=== PATIENT | male | born 1995 | race African-American/Black ===

== ENCOUNTER 2017-02-27 03:13 | Emergency (ER) | payer SELFPAY ==
[2017-02-27 03:47] VITALS: BP 138/74; PULSE 86; TEMP 97.2; BMI 25.0
--- NOTE | 2017-02-27 03:50 | PDOC ---
History of Present Illness - General History Source: Patient, Family Exam Limitations: No Limitations - History of Present Illness Initial Comments: 02/27/17 04:19 The patient is a 22 year old male with no significant PMH who presents to the emergency department with a finger injury that occurred approximately 29 hours ago. The patient reports dropping a plate and attempting to catch it, after which the plate shattered and the pieces cut the side of his right middle finger. The patient's family reports that the patient visited [facility] ED immediately after the finger injury occurred on . He denied treatment after the ED provider requested to inject local into the cut. The patient and his family came to the [facility] ED on Wednesday morning after the cut did not stop bleeding. The patient is right-hand dominant. The patient's tetanus immunization is up to date. The patient denies numbness or tingling. Denies chest pain, shortness of breath, headache and dizziness. Denies fever, chills, nausea, vomit, diarrhea and constipation. Denies dysuria, frequency, urgency and hematuria. Allergies: NKA Past surgical history: None Social history: No toxic habits reported <Thom Soler - Last Filed: 02/27/17 04:18> - General History Source: Patient Exam Limitations: No Limitations - History of Present Illness Occurred: reports: other (x29h ago) Upper Extremity Pain Location: right: 3rd finger (lat x29h ago) Method of Injury: reports: incised <Sagar Woodson - Last Filed: 02/27/17 04:24> - General Stated Complaint: FINGER, INJURY Time Seen by Provider: 02/27/17 03:37 Past History <Thom Soler - Last Filed: 02/27/17 04:18> <Sagar Woodson - Last Filed: 02/27/17 04:24> - Past Medical History Allergies/Adverse Reactions: Allergies Allergy/AdvReac Type Severity Reaction Status Date / Time No Known Allergies Allergy Verified 02/27/17 03:45 Home Medications: Ambulatory Orders Cephalexin Monohydrate [Keflex -] 500 mg PO TID #15 capsule 02/27/17 Review of Systems - Review of Systems Comments:: 02/27/17 04:19 CONSTITUTIONAL: Absent: Fevers, chills, diaphoresis, generalized weakness, malaise, loss of appetite HEENT: Absent: rhinorrhea, nasal congestion, throat pain, throat swelling, difficulty swallowing, mouth swelling, ear pain, eye pain, visual Changes CARDIOVASCULAR: Absent: chest pain, syncope, palpitations, irregular heart rate, lightheadedness , peripheral edema RESPIRATORY: Absent: cough, shortness of breath, dyspnea with exertion, orthopnea, wheezing, stridor, hemoptysis GASTROINTESTINAL: Absent: abdominal pain, abdominal distension, nausea, vomiting, diarrhea, constipation, melena, hematochezia GENITOURINARY: Absent: dysuria, frequency, urgency, hesitancy, hematuria, flank pain, genital pain MUSCULOSKELETAL: Absent: myalgia, arthralgia, joint swelling SKIN: (+)Right middle finger injury Absent: rash, itching, pallor HEMATOLOGIC/IMMUNOLOGIC: Absent: easy bleeding, easy bruising, lymphadenopathy, frequent infections NEUROLOGIC: Absent: headache, focal weakness or paresthesias, dizziness, unsteady gait, seizure, mental status changes, bladder or bowel incontinence PSYCHIATRIC: Absent: anxiety, depression, suicidal or homicidal ideation, hallucinations. <Thom Soler - Last Filed: 02/27/17 04:18> *Physical Exam - Vital Signs Last Vital Signs Temp Pulse Resp BP Pulse Ox 97.2 F L 86 20 138/74 99 02/27/17 03:46 02/27/17 03:46 02/27/17 03:46 02/27/17 03:46 02/27/17 03:46 - Physical Exam Comments: 02/27/17 04:19 GENERAL: Well developed, well nourished. Awake and alert. No acute distress. HEENT: Normocephalic, atraumatic. PERRLA, EOMI. No conjunctival pallor. Sclera are non- icteric. Moist mucous membranes. Oropharynx is clear. NECK: Supple. Full ROM. No JVD. Carotid pulses 2+ and symmetric, without bruits. No thyromegaly. No lymphadenopathy. CARDIOVASCULAR: Regular rate and rhythm. No murmurs, rubs, or gallops. Distal pulses are 2+ and symmetric. PULMONARY: No evidence of respiratory distress. Lungs clear to auscultation bilaterally. No wheezing, rales or rhonchi. ABDOMINAL: Soft. Non-tender. Non-distended. No rebound or guarding. No organomegaly. Normoactive bowel sounds. MUSCULOSKELETAL Normal range of motion at all joints. No bony deformities or tenderness. No CVA tenderness. EXTREMITIES: No cyanosis. No clubbing. No edema. No calf tenderness. SKIN: (+) 3 cm x 1 cm avulsion laceration on right medial 3rd mid to distal phalanx Warm and dry. Normal capillary refill. No rashes. No jaundice. NEUROLOGICAL: Alert, awake, appropriate. Cranial nerves 2-12 intact. No deficits to light touch and temperature in face, upper extremities and lower extremities. No motor deficits in the in face, upper extremities and lower extremities. Normoreflexic in the upper and lower extremities. Normal speech. Toes are downgoing bilaterally. Gait is normal without ataxia. PSYCHIATRIC: Cooperative. Good eye contact. Appropriate mood and affect. <Thom Soler - Last Filed: 02/27/17 04:18> *DC/Admit/Observation/Transfer - Attestations Scribe Attestion: 02/27/17 04:20 Documentation prepared by Thom Soler, acting as medical sales specialist for Diandra Fitzgerald MD. <Thom Soler - Last Filed: 02/27/17 04:18> - Discharge Dispostion Admit: No <Sagar Woodson - Last Filed: 02/27/17 04:24> Diagnosis at time of Disposition: Laceration - Discharge Dispostion Disposition: HOME Condition at time of disposition: Stable - Prescriptions Prescriptions: Cephalexin Monohydrate [Keflex -] 500 mg PO TID #15 capsule - Patient Instructions Printed Discharge Instructions: DI for Open Laceration Additional Instructions: As we discussed, you laceration/cut is over 24 hours and therefore cannot be repaired. Take Tylenol as needed for pain Take Keflex 500 mg 1 tablet 3 times a day for the next 5 days to prevent any infection but is not guaranteed Follow-up with your primary care physician in 24-48 hours for wound check or return to the emergency department for the wound check Return back to the emergency department for any red streaks coming from the cut , severe swelling, fever or chills. Follow-up with your physician as needed.
[2017-02-27] MEDS ORDERED: CEPHALEXIN MONOHYDRATE 500 MG CAPSULE (UD) PO ONE (04:18)
[2017-02-27] MEDS ORDERED: CEPHALEXIN MONOHYDRATE 250 MG CAPSULE (FP) ONE (04:20)
== END 2017-02-27 04:25 | disposition home or self-care (01) ==
LOC: JER 03:13
DX: S61.212A Laceration without foreign body of right middle finger without damage to nail, initial encounter (principal); W25.XXXA Contact with sharp glass, initial encounter; Y93.89 Activity, other specified; Y92.9 Unspecified place or not applicable
CPT/HCPCS: 99282-25

== ENCOUNTER 2019-09-04 15:43 | Emergency (ER) | payer BC, OTHER ==
--- NOTE | 2019-09-04 16:06 | PDOC ---
Rapid Medical Evaluation Time Seen by Provider: 09/04/19 16:01 Medical Evaluation: Allergies Allergy/AdvReac Type Severity Reaction Status Date / Time No Known Allergies Allergy Verified 02/27/17 03:45 09/04/19 16:01 I performed a brief in-person evaluation of this patient. Healthy 24-year-old male with right testicular mass since Apr. No discharge, erythema, pain, or other associated symptoms. Pertinent physical exam findings. Deferred I have ordered the following: UA/culture GC/CT Testicular u/s Patient to proceed to ED for further evaluation. 09/04/19 16:08
[2019-09-04 16:09] VITALS: TEMP 98; BMI 23.7
--- NOTE | 2019-09-04 17:12 | PDOC ---
History of Present Illness - General History Source: Patient - History of Present Illness Initial Comments: 09/04/19 17:42 Mr. Wills is a 24 y/o man w/no PMH p/w 4 months of unilateral R scrotal swelling. He reports not presenting for evaluation previously due to lack of insurance. He reports painless unilateral swelling at the R groin region, with some increase in size over the last 4 months. He denies any dysuria, increased urinary frequency, nausea, vomiting, fevers, chills, weight loss, or night sweats. He reports occasional unprotected anal sex. He reports two episodes of painless macular red rash on the glans that resolved in approx two weeks. He has not been previously tested for STIs and consents to HIV testing today. <Osiel Deluca - Last Filed: 09/10/19 03:35> <Mayo Alvarenga - Last Filed: 09/15/19 01:08> - General Chief Complaint: Penile Drainage Stated Complaint: RT SIDE LUMP ON THE TESTICLE Time Seen by Provider: 09/04/19 16:01 Past History - Past Medical History COPD: No - Immunization History Immunization Up to Date: No - Psycho Social/Smoking Cessation Hx Smoking History: Never smoked Have you smoked in the past 12 months: No Hx Alcohol Use: Yes Drug/Substance Use Hx: Yes (marijuana) Substance Use Type: None <Osiel Deluca - Last Filed: 09/10/19 03:35> <Mayo Alvarenga - Last Filed: 09/15/19 01:08> - Past Medical History Allergies/Adverse Reactions: Allergies Allergy/AdvReac Type Severity Reaction Status Date / Time No Known Allergies Allergy Verified 09/04/19 18:54 Home Medications: Ambulatory Orders Doxycycline Monohydrate [Mondoxyne Nl] 100 mg PO BID 21 Days #42 capsule Doxycycline Monohydrate [Mondoxyne Nl] 100 mg PO BID #14 capsule 09/13/19 Review of Systems - Review of Systems Able to Perform ROS?: Yes Comments:: 09/04/19 18:53 ROS: GENERAL/CONSTITUTIONAL: No fever or chills. No weakness. HEAD, EYES, EARS, NOSE AND THROAT: No change in vision. No ear pain or discharge. No sore throat. CARDIOVASCULAR: No chest pain or shortness of breath RESPIRATORY: No cough, wheezing, or hemoptysis. GASTROINTESTINAL: No nausea, vomiting, diarrhea or constipation. GENITOURINARY: Groin swelling. No dysuria, frequency, or change in urination. MUSCULOSKELETAL: No joint or muscle swelling or pain. No neck or back pain. SKIN: No rash NEUROLOGIC: No headache, vertigo, loss of consciousness, or change in strength/ sensation. ENDOCRINE: No increased thirst. No abnormal weight change HEMATOLOGIC/LYMPHATIC: No anemia, easy bleeding, or history of blood clots. ALLERGIC/IMMUNOLOGIC: No hives or skin allergy. <Osiel Deluca - Last Filed: 09/10/19 03:35> *Physical Exam - Vital Signs Last Vital Signs Temp Pulse Resp BP Pulse Ox 98.0 F 80 12 98/57 L 100 09/04/19 16:07 09/04/19 16:07 09/04/19 16:07 09/04/19 16:07 09/04/19 16:07 - Physical Exam 09/04/19 18:53 PE: GENERAL: Awake, alert, and fully oriented, in no acute distress HEAD: No signs of trauma, normocephalic, atraumatic EYES: PERRLA, EOMI, sclera anicteric, conjunctiva clear ENT: Auricles normal inspection, hearing grossly normal, nares patent, oropharynx clear without exudates. Moist mucosa NECK: Normal ROM, supple, no lymphadenopathy, JVD, or masses LUNGS: No distress, speaks full sentences, clear to auscultation bilaterally HEART: Regular rate and rhythm, normal S1 and S2, no murmurs, rubs or gallops, peripheral pulses normal and equal bilaterally. ABDOMEN: Soft, nontender, normoactive bowel sounds. No guarding, no rebound. No masses EXTREMITIES : Normal inspection, Normal range of motion, no edema. No clubbing or cyanosis NEUROLOGICAL: Cranial nerves II through XII grossly intact. Normal speech, normal gait, no focal sensorimotor deficits SKIN: Warm, Dry, normal turgor, no rashes or lesions noted <Osiel Deluca - Last Filed: 09/10/19 03:35> - Vital Signs Last Vital Signs Temp Pulse Resp BP Pulse Ox 98.0 F 79 16 120/74 99 09/04/19 16:07 09/04/19 20:25 09/04/19 20:25 09/04/19 20:25 09/04/19 20:25 <Mayo Alvarenga - Last Filed: 09/15/19 01:08> ED Treatment Course - ADDITIONAL ORDERS Additional order review: 09/04/19 16:30 Urine Culture - Final Urine - Urine Clean Catch NO GROWTH OBTAINED - Medications Given in the ED: ED Medications Discontinued Medications Generic Name Dose Route Start Last Admin Trade Name Emanuel PRN Reason Stop Dose Admin Azithromycin 1,000 mg 09/04/19 17:36 09/04/19 18:09 Zithromax PO 09/04/19 17:37 1,000 mg ONCE ONE Administration Ceftriaxone Sodium 250 mg 09/04/19 17:36 09/04/19 18:09 Rocephin - IM 09/04/19 17:37 250 mg ONCE ONE Administration <Mayo Alvarenga - Last Filed: 09/15/19 01:08> Medical Decision Making - Medical Decision Making 09/04/19 17:58 24M w/no PMH p/w 4 months of painless swelling at the R inguinal crease, firm 1cm diameter spherical nodule noted c/w buboes. Ddx includes LGV given multiple partners with intermittent protection with termite treater buboes. Swelling may also represent cystic structure vs mass. Plan: UA Urine culture GC Urine HIV oraquick test (verbal consent obtained) RPR Scrotal US to evaluate structure Azithromycin 1000 mg po 250mg IM ceftriaxone Dispo: Discharge with PCP, urology follow up --- Patient to USS. UA negative RPR will be send out test, plan for call-back with results 09/04/19 18:44 US - negative for acute process Plan for discharge with Doxy 100mg BID 21 days for LGV coverage given buboes, duration of symptoms <Osiel Deluca - Last Filed: 09/10/19 03:35> - Medical Decision Making 09/15/19 01:07 I have seen and evaluated the patient. I agree with the resident's note as well as management and care I have informed the patient that I believe his testicular swelling and ultrasound are related to STI however cancerous mass could not be ruled out by ultrasound and that he should urgently follow up with a urologist for further testing. <Mayo Alvarenga - Last Filed: 09/15/19 01:08> Discharge - Discharge Information Problems reviewed: Yes - Admission No <Osiel Deluca - Last Filed: 09/10/19 03:35> <Mayo Alvarenga - Last Filed: 09/15/19 01:08> - Discharge Information Clinical Impression/Diagnosis: Urinary disorder Condition: Stable Disposition: HOME - Additional Discharge Information Prescriptions: Doxycycline Monohydrate [Mondoxyne Nl] 100 mg PO BID 21 Days #42 capsule Doxycycline Monohydrate [Mondoxyne Nl] 100 mg PO BID #14 capsule - Follow up/Referral Referrals: [facility] [place] [Provider Group] Asaf Shine MD [Staff Physician] - Mi Modi MD [Staff Physician] - - Patient Discharge Instructions Patient Printed Discharge Instructions: How to Detect and Treat STDs, Chlamydia : The Silent STD Additional Instructions: You were seen in the ER for groin swelling. Your ultrasound shows a complex structure on your groin. This may be a swollen lymph node, indicating an infection caused by chlamydia - a sexually transmitted infection. You will receive a call-back with the results of your HIV, chlamydia, gonorrhea, and syphillis tests. We are prescribing a medication called Doxycycline to treat chlamydia. Please take it two times every day for 3 weeks (21 days). Be sure to follow up with specialists in urology and infectious diseases, we are giving you referrals. Please call to make an appointment as soon as possible, in the next 2-3 days.
[2019-09-04 17:20] LABS: PH,URINE >= 9.0 (5.0-8.0); URINE APPEARANCE CLEAR; URINE BILIRUBIN NEGATIVE (NEGATIVE); URINE COLOR YELLOW; URINE GLUCOSE (UA) NEGATIVE (NEGATIVE); URINE KETONE TRACE (NEGATIVE); URINE LEUK ESTERASE NEGATIVE (NEGATIVE); URINE NITRITE NEGATIVE (NEGATIVE); URINE PROTEIN NEGATIVE (NEGATIVE)
[2019-09-04] MEDS ORDERED: AZITHROMYCIN 500 MG TABLET PO ONE (17:36)
[2019-09-04] MEDS ORDERED: cefTRIAXone SODIUM 1 GM VIAL ONE (18:01)
[2019-09-04] MEDS ORDERED: AZITHROMYCIN 250 MG TABLET ONE (18:01)
[2019-09-04] MEDS ORDERED: LIDOCAINE HCL 2% (20ML MULTI-DOSE VIAL) ONE (18:02)
[2019-09-04 20:26] VITALS: BP 120/74; PULSE 79
--- NOTE | 2019-09-04 21:56 | PDOC ---
Documentation entered by Lanny Jarrell SCRIBE, acting as scribe for Mayo Alvarenga DO. Mayo Alvarenga DO: This documentation has been prepared by the marieibe, Lanny Jarrell SCRIBE, under my direction and personally reviewed by me in its entirety. I confirm that the documentation accurately reflects all work, treatment, procedures, and medical decision making performed by me. Attending Attestation - Resident Resident Name: [email or web address] - HPI HPI: 09/04/19 17:45 24-year-old male with no significant past medical history who presents to the emergency department with four months of fluctuating painless right testicular mass that has been progressively getting bigger in size. Denies any pain or penile discharge. The patient admits to an intermittent flat rash to the glans of the penis and admits to frequent unprotected anal/oral intercourse with multiple partners. Denies dysuria, hematuria, fever, chills, extensive weight loss, or night sweats. The patient is requesting HIV and STI testing and treatment. 09/04/19 17:48 - Physicial Exam PE: 09/04/19 17:45 : Large 4cm moy-solid nonmobile mass superior to and separate from the right testicular in the scrotal sac, likely inflammed lymph note. No penile discharge , ulcers, or rashes. Cremasteric reflex intact bilat, no epidydimal tenderness, testicles in normal lay 09/04/19 17:51 - Medical Decision Making 09/04/19 17:45 A/P 24-year-old male who presents with a right scrotal mass, engages in high-risk behaviors, will plan to treat pt for chlamydial infection(LGV)/ test the patient for STI/HIV, evaluate the scrotal mass for malignancy with ultrasound ( more likely inflammed lymph node), will treat the patient for STI and perform HIV testing. Will offer the patient Prep and likely refer to out pt urology Differential includes: LGV Bubo vs. less likely malignant mass. 09/04/19 17:49 09/04/19 20:06 Ultrasound shows a complete structure adjacent to the right testicular Unclear whether this is edematous lymph node vs. complex mass. Will plan to discharge the patient on 21-day course of doxycycline. Will give the patient urology, and infectious disease follow up Will offer PREP to the patient for HIV prophylaxis
== END 2019-09-04 20:26 | disposition home or self-care (01) ==
LOC: JER 15:43
DX: N44.8 Other noninflammatory disorders of the testis (principal); I88.8 Other nonspecific lymphadenitis
CPT/HCPCS: 36415; 76870-TC; 81003; 86593; 87086; 87389; 87491; 87591; 99284-25

== ENCOUNTER 2020-01-11 05:23 | Day surgery (SDC) | payer OTHER ==
[2020-01-10 13:56] VITALS: BMI 25.5
[~2020-01-11 05:23] MED LIST: BUPIVACAINE HCL/PF 0.5% (5 MG/ML) 30 ML VIAL IJ ONE
[2020-01-11] MEDS ORDERED: MIDAZOLAM HCL 2 MG/2 ML SINGLE DOSE VIAL ONE (08:39)
[2020-01-11] MEDS ORDERED: PROPOFOL 20 ML ONE (10:02)
[2020-01-11] MEDS ORDERED: ceFAZolin SODIUM 1 GM VIAL IVPB ONE (10:03)
[2020-01-11] MEDS ORDERED: ceFAZolin SODIUM 1 GM VIAL ONE (10:04)
[2020-01-11] MEDS ORDERED: DEXAMETHASONE SOD PHOSPHATE 4 MG/1 ML VIAL ONE (10:10)
[2020-01-11] MEDS ORDERED: LIDOCAINE HCL/PF 2% SDV 5ML VIAL ONE (10:38)
[2020-01-11] MEDS ORDERED: oxyCODONE HCL 5 MG TABLET PO PRN ×2 (10:53→12:39)
--- NOTE | 2020-01-11 10:55 | OP ---
Operative Note - Note: Operative Date: 01/11/20 Pre-Operative Diagnosis: rt groin mass Operation: rt groin exploration, excision groin mass Post-Operative Diagnosis: Same as Pre-op Anesthesia: General Specimens Removed: groin mass Operative Report Dictated: Yes
[2020-01-11] MEDS ORDERED: DEXTROSE 5%-0.45% SALINE 1,000 ML IV SCH (11:00)
[2020-01-11] MEDS ORDERED: ONDANSETRON 4 MG/2 ML VIAL IVPUSH PRN (12:39)
[2020-01-11] MEDS ORDERED: LACTATED RINGERS SOLUTION 1,000 ML IV SCH (12:45)
[2020-01-11 13:34] VITALS: BP 110/66; PULSE 71; TEMP 97.7
--- NOTE | 2020-01-12 09:13 | OP ---
DATE OF OPERATION: 01/11/2020 PREOPERATIVE DIAGNOSIS: Right groin mass. POSTOPERATIVE DIAGNOSIS: Right groin mass. PROCEDURE: Right groin exploration and excision of right groin mass. SURGEON: Shaggy Sky MD INDICATION: Patient is a 24-year-old male with a several-month history of persistent right groin mass that did not improve with antibiotic therapy. Scrotal ultrasound and MRI were nondiagnostic. He is taken to the OR for exploration and surgical excision. DESCRIPTION OF PROCEDURE: Patient taken to the OR, placed supine on the table. Cardiac monitoring administered. General anesthesia was then established. The groin was prepped and draped in standard surgical fashion. He was given 2 g of Ancef. At this point the right groin mass can be palpated and seen. It is approximately 2-3 cm in size. The scrotal skin was incised overlying the groin mass, and then using blunt and surgical dissection, the groin mass was isolated. It was clearly adherent to the spermatic cord, and using blunt dissection, the mass was from the spermatic cord. At one point there was a vascular attachment, and this was ligated and tied with 2-0 Vicryl ties. Mass was completely excised with the capsule intact and sent to pathology for analysis. All bleeding points were fulgurated. There was no evidence of any other masses, no evidence of any other abnormality of the spermatic cord. The spermatic cord was then placed back in its normal anatomic position. The dartos layer was reapproximated with a 3-0 chromic, and the skin was closed with 4-0 Monocryl followed by Dermabond. A dry sterile dressing was then placed. Patient was awoken from anesthesia and transferred to the recovery room in stable condition. There were no complications. Estimated blood loss was minimal. SHAGGY SKY M.D. [id number]
--- NOTE | 2020-01-15 17:20 | PATH ---
Surgical Pathology Report Patient Name: PRIYANK WADE [facility]. Rec. #: [id number] /Age/Gender: 1995 (Age: 24) / M Account: [id number] Location: [facility] SURGICAL Taken: 01/11/2020 Received: 01/11/2020 Reported: 01/15/2020 Physicians: Ephraim Daniel M.D. Specimen(s) Received RIGHT GROIN MASS Clinical History Right scrotal mass Final Diagnosis RIGHT GROIN MASS, EXCISION: CYSTIC LESION WITH DENSE FIBROTIC WALL SHOWING CHRONIC INFLAMMATION, OLD AND RECENT HEMORRHAGE, AND FIBRINOUS EXUDATE. NO LINING EPITHELIUM PRESENT. NO SPERMATOZOA IDENTIFIED. NEGATIVE FOR MALIGNANCY. Comment: Suggest clinical correlation. This case was discussed with Dr. Daniel on 01/15/20. Electronically Signed Adoflo Maldonado M.D. Gross Description Received in formalin labeled "right groin mass," is a 2.9 x 2.3 x 2.0 cm gonzalez diaz, encapsulated, unoriented soft tissue mass. Sectioning reveals a cystic structure containing red-brown blood. The outer capsule is inked blue and the specimen is serially sectioned. The specimen is entirely and sequentially submitted in 6 cassettes. DL/01/11/2020 saudi/01/11/2020
== END 2020-01-11 14:30 | disposition home or self-care (01) ==
LOC: JASU-SURG 05:23
PROVIDERS: ATTEND Urology
PROC: 0VB50ZZ Excision of Scrotum, Open Approach (ICD-10-PCS; principal; 2020-01-11 10:00)
DX: D29.4 Benign neoplasm of scrotum (principal)
CPT/HCPCS: 88307-TC; 94760